=== PATIENT | male | born 1955 | race Caucasian/White ===

== ENCOUNTER 2019-05-18 12:09 | Emergency (ER) | payer OTHER ==
[~2019-05-18] VITALS: Ht 162.6 cm; Wt 69.0 kg
[2019-05-18 12:15] VITALS: BP 127/83
--- NOTE | 2019-05-18 12:37 | NUR ---
PT PLACED IN BED 7.
--- NOTE | 2019-05-18 13:15 | NUR ---
63 Y MALE, PRESENTED TO ED C/O ABDOMINAL DISTENTION WITH INTERMITTENT SOB. PT STATED "I HAVE BEEN HAVING THIS ISSUE FOR 6 MONTHS NOW" PT C/O CONSTIPATION WITH LBM 3 DAYS AGO. -N/V/D NO C/O PAIN AT THIS TIME. ABDOMEN ROUND FIRM TO TOUCH NON-TENDER, BOWEL SOUNDS PRESENT X4, ALSO NOTED BREEZY. FOOT SWELLING NON-PITTING. AAOX4, GCS 15, RR EVEN UNLABORED. ED MD DR. SALAS MADE AWARE, WILL CONTINUE TO MONITOR CLOSELY. BED LOCKED IN LOWEST POSITION, SIDERAIL UPX1.
--- NOTE | 2019-05-18 13:15 | NUR ---
RECEIVED REPORT FROM SAMPSON MARSH. PT IN BED RESTING, IN STABLE CONDITION AT THIS TIME. WILL CONTINUE TO MONITOR CLOSELY.
--- NOTE | 2019-05-18 13:15 | NUR ---
Trudi brar in ED - 05/18/19 at 1322 by LUCAS RECEIVED REPORT FROM RN. SALMA PT IN BED RESTING, IN STABLE CONDITION AT THIS TIME.
--- NOTE | 2019-05-18 13:15 | NUR ---
Note undone in EDM - 05/18/19 at 1431 by MEDAP 63 Y MALE, PRESENTED TO ED C/O ABDOMINAL DISTENTION WITH INTERMITTENT SOB. PT STATED "I HAVE BEEN HAVING THIS ISSUE FOR 6 MONTHS NOW" PT C/O CONSTIPATION WITH LBM 3 DAYS AGO. -N/V/D NO C/O PAIN AT THIS TIME. ABDOMEN ROUND HARD TO TOUCH NON-TENDER, BOWEL SOUNDS PRESENT X4, ALSO NOTED BREEZY. FOOT SWELLING NON-PITTING. AAOX4, GCS 15, RR EVEN UNLABORED. ED MD DR. SALAS MADE AWARE, WILL CONTINUE TO MONITOR CLOSELY. BED LOCKED IN LOWEST POSITION, SIDERAIL UPX1.
[2019-05-18 13:52] LABS: BASOPHILS % (AUTO) 0.4 % (0.0-2.0); EOSINOPHILS % (AUTO) 0.2 % (0.0-4.0); HEMATOCRIT 45.8 % (36-52); HEMOGLOBIN 15.4 g/dL (12.0-18.0); LYMPHOCYTES # (AUTO) 2.2 K/uL (2.0-11.5); LYMPHOCYTES % (AUTO) 20.4 % (20.5-51.1); MEAN CORPUSCULAR HEMOGLOBIN 30 pg (27-31); MEAN CORPUSCULAR HGB CONC 34 g/dL (33-37); MEAN CORPUSCULAR VOLUME 88.5 fL (80-94); MONOCYTES # (AUTO) 0.4 K/uL (0.8-1.0); MONOCYTES % (AUTO) 4.1 % (1.7-9.3); NEUTROPHILS % (AUTO) 74.9 % (42.2-75.2); PLATELET COUNT (AUTO) 141 K/uL (140-450); RED BLOOD CELL COUNT(AUTO) 5.17 MIL/uL (4.20-6.10); RED CELL DISTRIBUTION WIDTH 15.7 % (11.6-13.7); WHITE BLOOD COUNT (AUTO) 10.7 K/uL (4.8-10.8)
[2019-05-18 14:32] LABS: ALBUMIN 3.1 g/dL (3.4-5.0); ANION GAP 8.7 (8-16); CREATININE 0.9 mg/dL (0.7-1.3); TOTAL BILIRUBIN 0.7 mg/dL (0.0-1.0)
[2019-05-18 14:43] LABS: POTASSIUM 2.7 mmol/L (3.5-5.1)
[2019-05-18] MEDS ORDERED: POTASSIUM CHLORIDE 20% 40 MEQ/15 ML UDC PO ONE (15:05)
[2019-05-18] MEDS ORDERED: POTASSIUM CHLORIDE 10 MEQ TABER PO ONE (15:05)
--- NOTE | 2019-05-18 15:18 | NUR ---
ADMINISTERED MEDS ORDERED. PT RESTING COMFORTABLY IN HIS BED.
[2019-05-18 15:19] LABS: APPEARANCE,URINE CLEAR (CLEAR); COLOR,URINE YELLOW (YELLOW)
[2019-05-18 15:20] LABS: BILIRUBIN,URINE NEGATIVE (NEGATIVE); BLOOD, URINE NEGATIVE (NEGATIVE); NITRITE, URINE NEGATIVE (NEGATIVE); UGLUCOSE NEGATIVE (NEGATIVE)
--- NOTE | 2019-05-18 15:29 | NUR ---
PT COUGHNIG DUE TO LIQUID KCL PROVIDED TO THE PT. GAVE WATER AND APPLE JUICE TO REDUCE IRRITATION. WILL CONTINUE TO MONITOR PT.
[2019-05-18] MEDS ORDERED: ONDANSETRON 4 MG ODT PO ONE (15:40)
[2019-05-18] MEDS ORDERED: LIDOCAINE VISCOUS 2% 20 ML UDC PO ONE (15:40)
[2019-05-18 15:46] LABS: RBC,URINE 0-5 /HPF (0-5)
[2019-05-18 17:01] LABS: LEUKOCYTE ESTERASE ,URINE TRACE (NEGATIVE)
[2019-05-18 18:00] VITALS: BP 138/86
--- NOTE | 2019-05-18 18:00 | NUR ---
Patient discharged with v/s stable. Written and verbal after care instructions given and explained. Patient alert, oriented and verbalized understanding of instructions. Ambulatory with steady gait. All questions addressed prior to discharge. ID band removed. Patient advised to follow up with PMD. Rx of POTASSIUM CHLORIDE 20mEq and MIRALAX POWDER FOR SOLUTION 17GRM given. Patient educated on indication of medication including possible reaction and side effects. Opportunity to ask questions provided and answered.
== END 2019-05-18 18:00 | disposition home or self-care (01) ==
LOC: MED 12:09
DX: R14.0 Abdominal distension (gaseous) (principal); E87.6 Hypokalemia; J90 Pleural effusion, not elsewhere classified; I25.2 Old myocardial infarction; Z98.890 Other specified postprocedural states
CPT/HCPCS: 36415; 74176; 80053; 81001; 85025; 87086; 93005; 99284; Q0162

== ENCOUNTER 2019-05-24 10:27 | Inpatient (IN) | payer OTHER ==
[~2019-05-24] VITALS: Ht 170.2 cm; Wt 67.1 kg
--- NOTE | 2019-05-24 10:27 | NUR ---
Patient BIBA ACLS, transferred to bed 10. Dr. Bolden and RN evaluating patient at bedside.
[2019-05-24 10:30] VITALS: BP 148/83
--- NOTE | 2019-05-24 10:40 | NUR ---
BIB [facility] FROM HOME W/ C/O SOB STARTED THIS MORNING. [place] AT 23. BILATERAL WHEEZING IN LUNG EARLY. PATIENT ON 6 L MASK. 2 MN TX GIVEN BY [facility]. SOB STARTED ABOUT 5 MONTHS AGO WHEN HE HAD HERNIA REPAIR. AA0X4. BED IS DOWN, LOCKED, BED RAIL X 1, ERMD TO SEE PT. HX: COPD
--- NOTE | 2019-05-24 11:30 | NUR ---
DR ZHONG AT BEDSIDE
--- NOTE | 2019-05-24 11:34 | NUR ---
PT TAKEN DOWN TO 4 L NC
[2019-05-24] MEDS ORDERED: ALBUTEROL 0.083% 2.5 MG/3 ML NEBU INH ONE (11:45)
[2019-05-24] MEDS ORDERED: IPRATROPIUM 0.02% 0.5 MG/2.5 ML NEBU INH ONE (11:45)
[2019-05-24] MEDS ORDERED: ALBUTEROL SULFATE/IPRATROPIU 3 ML SOL IH ONE (11:45)
--- NOTE | 2019-05-24 11:54 | NUR ---
XRAY AT BEDSIDE
--- NOTE | 2019-05-24 12:05 | NUR ---
LABS DRAWN AND HANDED DIRECTLY TO ANALYTICAL SCIENTIST
--- NOTE | 2019-05-24 12:05 | NUR ---
RT AT BEDSIDE
[2019-05-24 12:23] LABS: HEMATOCRIT 44.5 % (36-52); HEMOGLOBIN 15.3 g/dL (12.0-18.0); MEAN CORPUSCULAR HEMOGLOBIN 30 pg (27-31); MEAN CORPUSCULAR HGB CONC 34 g/dL (33-37); MEAN CORPUSCULAR VOLUME 87.6 fL (80-94); PLATELET COUNT (AUTO) 126 K/uL (140-450); RED BLOOD CELL COUNT(AUTO) 5.08 MIL/uL (4.20-6.10); RED CELL DISTRIBUTION WIDTH 15.2 % (11.6-13.7); WHITE BLOOD COUNT (AUTO) 12.7 K/uL (4.8-10.8)
[2019-05-24 12:35] LABS: PROTHROMBIN TIME 10.8 secs (10.8-13.4)
[2019-05-24 12:41] LABS: ALBUMIN 3.1 g/dL (3.4-5.0); ANION GAP 8.9 (8-16); CARBON DIOXIDE 35.4 mmol/L (21-32); CREATININE 0.9 mg/dL (0.7-1.3); TOTAL BILIRUBIN 0.7 mg/dL (0.0-1.0)
[2019-05-24 12:42] LABS: LYMPHOCYTES % (MANUAL) 15 % (20-46); MONOCYTES % (MANUAL) 4 % (5-12)
[2019-05-24 12:43] LABS: POTASSIUM 2.3 mmol/L (3.5-5.1)
[2019-05-24] MEDS ORDERED: KCL 20 MEQ/WATER INJ PREMIX 200 ML IV ONE (12:45)
[2019-05-24] MEDS ORDERED: AZITHROMYCIN 250 MG TAB PO ONE (12:50)
[2019-05-24] MEDS ORDERED: cefTRIAXone 1,000 MG VIAL ONE (13:30)
--- NOTE | 2019-05-24 14:00 | NUR ---
Patient will be admitted to care of MARY SAMANIEGO. Admited to TELE. Will go to room 105A. Belongings list completed. Report to MICHAEL BRADEN.
[2019-05-24] MEDS ORDERED: ALBUTEROL 0.083% 2.5 MG/3 ML NEBU INH PRN (14:15)
[2019-05-24] MEDS ORDERED: POTASSIUM CHLORIDE 10 MEQ TABER PO SCH (14:15)
[2019-05-24] MEDS ORDERED: ACETAMINOPHEN 325 MG TAB PO PRN (14:15)
--- NOTE | 2019-05-24 14:20 | NUR ---
RECEIVED BEDSIDE REPORT FROM ER NURSE. PT AWAKE, ALERT AND ORIENTED X4. AZERI SPEAKING, ABLE TO SPEAK SOME TUNISIAN. ABLE TO FOLLOW COMMANDS. CC: SOB. PT ABLE TO MOVE HIM SELF FROM GURNEY TO THE NEW BED. NO RESPIRATORY DISTRESS NOTED ON 3L NC. LUNG SOUNDS CLEAR. BOWEL SOUNDS ACTIVE. LEFT FA 18G, INTACT AND PATENT, RUNNING K RIDER AT THIS TIME. SKIN INTACT. ON TELE MONITOR, ST WITH PVCS. VITALS STABLE AT THIS TIME, WILL RECORD. BED IN LOWEST POSITION AND BED ALARM ON. CALL LIGHT WITHIN REACH. WILL CONTINUE TO MONITOR.
[2019-05-24] MEDS ORDERED: ONDANSETRON 4 MG/2 ML VIAL IVP PRN (14:30)
[2019-05-24] MEDS ORDERED: HYDROcodone/APAP 5/325 MG 1 TAB TAB PO PRN (14:30)
[2019-05-24] MEDS ORDERED: MORPHINE SULFATE 4 MG/ML SYR IVP PRN (14:30)
[2019-05-24] MEDS ORDERED: MAG SULF 2000 MG/WATER PREMIX 50 ML IV PRN (14:30)
[2019-05-24 15:23] VITALS: BP 135/81
--- NOTE | 2019-05-24 15:30 | NUR ---
SPOKE WITH DR SAMANIEGO ON THE PHONE. MADE HIM AWARE, PT HAS TROP 0.538, LACTIC 2.3 AND PT C/O CHEST TIGHTNESS. DR SAMANIEGO ORDER ASPIRIN 325MG, AND BREATHING TX. DR SAMANIEGO ALREADY TEXTED HIDE M[employer] WORKER DR ROSSI WHO WILL BE COMING TODAY. DR SAMANIEGO SAID WILL GIVE LASIX AFTER K RIDER FINISHES.
[2019-05-24] MEDS ORDERED: ASPIRIN 325 MG TAB PO SCH (16:00)
[2019-05-24] MEDS: KCL 20 MEQ/WATER INJ PREMIX 200 ML IV SCH ×2 (16:03→18:03)
--- NOTE | 2019-05-24 17:10 | NUR ---
PT C/O ANXIETY, 1MG ATIVAN GIVEN ORDERED.
[2019-05-24] MEDS: LORazepam 2 MG/ML VIAL IVP PRN ×2 (17:12→20:59)
--- NOTE | 2019-05-24 18:00 | NUR ---
MRSA NARES COLLECTED. WILL SEND TO LAB.
[2019-05-24] MEDS: ALBUTEROL 0.083% 2.5 MG/3 ML NEBU INH SCH (19:00)
[2019-05-24] MEDS: IPRATROPIUM 0.02% 0.5 MG/2.5 ML NEBU INH SCH (19:00)
--- NOTE | 2019-05-24 19:15 | NUR ---
PT ACCIDENTALLY PULLED OUT IV. RESTARTED NEW IV 20 G ON LEFT FA. PT TOLERATED WELL.
--- NOTE | 2019-05-24 19:20 | NUR ---
RECEIVED PT ON BED, AAOX3, ABLE TO MAKE NEEDS KNOWN, VITAL SIGNS TAKEN, BP ELEVATED, PT RESTLESS AT THIS TIME, DENIES ANY PAIN, REINFORCE SAFETY PROTOCOLS, SIDE RAILS UP AND BED ALARM ON, K-RIDER INFUSING WELL AT THIS TIME, DAUGHTER IN LAW AT BEDSIDE, CALL LIGHT WITHIN REACH.
--- NOTE | 2019-05-24 19:47 | NUR ---
FAMILY IN THE ROOM, SHE ASK ME TO HOLD TX HHN , BECAUSE PT JUST FELT AT SLEEP. NO SOB OR DISTRESS NOTED
[2019-05-24 20:00] VITALS: BP 161/99
[2019-05-24] MEDS: methylPREDNISolone SS 40 MG/ML VIAL IVP SCH (20:26)
[2019-05-24] MEDS: POTASSIUM CHL 20 MEQ/NACL 0.9% 1,000 ML IV SCH (20:27)
[2019-05-24] MEDS ORDERED: FUROSEMIDE 40 MG/4 ML VIAL IVP SCH (20:30)
--- NOTE | 2019-05-24 20:50 | NUR ---
2ND TROPONIN RESULT RELAYED TO DR Cleo ROSSI, NO NEW ORDER, STATED NO NEED TO CALL AGAIN UNLESS THE THIRD TROPONIN GOES UP 1.0 POINT.
[2019-05-24] MEDS ORDERED: methylPREDNISolone SS 40 MG in WATER STERILE 1 ML IV SCH (21:00)
--- NOTE | 2019-05-24 21:00 | NUR ---
PT AAOX3 BUT RESTLESS, STATED THAT HE IS SO ANXIOUS AND CANNOT CONTROL HIMSELF, KEEPS ON TAKING HIS NASAL CANNULA AND TOSS AND TURNING ON THE BED, MEDICATED WITH ATIVAN PRN, SIDE RAILS UP AND BED ALARM ON, MONITORED CLOSELY.
--- NOTE | 2019-05-24 22:35 | NUR ---
BED ALARM TRIGGERED, SEEN UNSTEADILY STANDING ON SIDE OF THE BED, ASSISTED TO USE URINAL, VOIDED FREELY, ASSISTED BACK TO BED AND REINFORCE NOT TO TAKE OFF NASAL CANNULA, FREQUENT ROUNDS MADE.
[2019-05-25] VITALS: BP 140/71
[2019-05-25] MEDS: ALBUTEROL 0.083% 2.5 MG/3 ML NEBU INH SCH ×3 (01:33→12:57)
[2019-05-25] MEDS: IPRATROPIUM 0.02% 0.5 MG/2.5 ML NEBU INH SCH ×3 (01:34→12:58)
[2019-05-25 04:00] VITALS: BP 123/60
--- NOTE | 2019-05-25 04:00 | NUR ---
PT SLEEPING, NASAL CANNULA NOT IN PLACE, VITAL SIGNS STABLE, SAT-93% ON ROOM AIR, REINFORCE THE IMPORTANCE OF NASAL CANNULA, PT VERBALIZED UNDERSTANDING, IVF INFUSING WELL, MONITORED CLOSELY.
[2019-05-25] MEDS: POTASSIUM CHL 20 MEQ/NACL 0.9% 1,000 ML IV SCH (06:09)
[2019-05-25 07:09] LABS: EOSINOPHILS % (AUTO) 0.1 % (0.0-4.0); HEMATOCRIT 43.7 % (36-52); HEMOGLOBIN 14.6 g/dL (12.0-18.0); LYMPHOCYTES # (AUTO) 1.8 K/uL (2.0-11.5); LYMPHOCYTES % (AUTO) 14.4 % (20.5-51.1); MEAN CORPUSCULAR HEMOGLOBIN 29 pg (27-31); MEAN CORPUSCULAR HGB CONC 33 g/dL (33-37); MEAN CORPUSCULAR VOLUME 88.1 fL (80-94); MONOCYTES # (AUTO) 0.4 K/uL (0.8-1.0); MONOCYTES % (AUTO) 2.9 % (1.7-9.3); NEUTROPHILS # (AUTO) 10.1 K/uL (1.8-7.7); NEUTROPHILS % (AUTO) 82.6 % (42.2-75.2); PLATELET COUNT (AUTO) 121 K/uL (140-450); RED BLOOD CELL COUNT(AUTO) 4.97 MIL/uL (4.20-6.10); RED CELL DISTRIBUTION WIDTH 15.3 % (11.6-13.7); WHITE BLOOD COUNT (AUTO) 12.2 K/uL (4.8-10.8)
--- NOTE | 2019-05-25 07:33 | NUR ---
PT SLEEPING, NO SIGNS OF DISTRESS, REPORT GIVEN TO RN SONAM FOR CONTINUITY OF CARE.
--- NOTE | 2019-05-25 07:34 | NUR ---
RECEIVED BEDSIDE REPORT FROM APPEALS NURSE NURSE, PT IS AAOX4, ABLE TO FOLLOW COMMANDS AND MAKE NEEDS KNOWN,VSS, DENIES PAIN, NO S/S OF DISTRESS, DENIES SOB, RHONCHI LUNG SOUNDS BREEZY., ON O2 AT 3L VIA NC, DENIES CHEST PAIN, ST ON TELE MONITOR, PITTING EDEMA TO BLE NOTED, SOFT ABDOMEN WITH ACTIVE BOWEL SOUNDS, CONTINENT WITH B&B'S, SKIN IS WARM AND DRY TO TOUCH, ABLE TO MOVE ALL EXTREMITIES, IV TO LEFT FOREARM 18GA RUNNING NS + KCL 20 MEQ AT 100ML/HR. HOB ELEVATED 30 DEGREES, SAFETY MEASURES IN PLACE, CALL LIGHT WITHIN REACH, EXPLAINED PLAN OF CARE TO PT, PT VERBALIZED UNDERSTANDING, WILL CONTINUE TO MONITOR.
[2019-05-25 07:45] LABS: ALBUMIN 2.8 g/dL (3.4-5.0); ANION GAP 10.7 (8-16); CARBON DIOXIDE 36.1 mmol/L (21-32); CREATININE 0.8 mg/dL (0.7-1.3); MAGNESIUM 1.9 mg/dL (1.8-2.4); TOTAL BILIRUBIN 0.7 mg/dL (0.0-1.0)
[2019-05-25 07:57] LABS: POTASSIUM 2.8 mmol/L (3.5-5.1)
[2019-05-25 08:00] VITALS: BP 130/105
--- NOTE | 2019-05-25 08:12 | NUR ---
PATIENT HAS BEEN SCREENED AND CATEGORIZED MODERATE NUTRITION RISK. PATIENT WILL BE SEEN WITHIN 3-5 DAYS OF ADMISSION. 05/27/19[address]
[2019-05-25] MEDS ORDERED: ENOXAPARIN 40 MG/0.4 ML SYR SUBQ SCH (09:00)
[2019-05-25] MEDS ORDERED: POTASSIUM CHLORIDE 10 MEQ TABER PO SCH ×3 (09:00→17:00)
[2019-05-25] MEDS ORDERED: DOCUSATE SODIUM 100 MG GELCAP PO SCH (09:00)
[2019-05-25] MEDS ORDERED: METOPROLOL SUCCINATE 50 MG TABER PO SCH (09:00)
[2019-05-25] MEDS ORDERED: ASPIRIN 81 MG TAB.CHEW PO SCH (09:00)
--- NOTE | 2019-05-25 09:00 | NUR ---
SCHEDULED MEDICATION GIVEN, PT ABLE TO SWALLOW PILLS ONCE OF A TIME AND TOLERATED WELL. ATE 100% OF BREAKFAST, FAMILY MEMBERS AT BEDSIDE.
--- NOTE | 2019-05-25 09:15 | NUR ---
DR. ROSSI CAME IN TO SEE PT AT BEDSIDE, UPDATED PT'S CONDITION, WILL FOLLOW UP WITH NEW ORDERS.
[2019-05-25] MEDS: methylPREDNISolone SS 40 MG/ML VIAL IVP SCH (09:42)
[2019-05-25] MEDS ORDERED: KCL 20 MEQ/WATER INJ PREMIX 200 ML IV ONE (10:00)
--- NOTE | 2019-05-25 10:00 | NUR ---
DR. SAMANIEGO CAME IN TO SEE PT AT BEDSIDE, UPDATED PT'S CONDITION, WILL FOLLOW UP WITH NEW ORDERS.
--- NOTE | 2019-05-25 11:07 | NUR ---
CONTACTED PATIENT'S PCP MELISSA VILLA AT [phone], ABLE TO SPEAK TO AME. SHE PROVIDED ME WITH MAY 30, 2019 AT 1030 AM. COPY OF THE APPOINTMENT PROVIDED TO THE PATIENT'S SON KENIA NOEL AT THE BEDSIDE. INSTRUCTED HIM TO BRING ALL DISCHARGE PAPERWORKS TO THE APPOINTMENT. ABLE TO VERBALIZE UNDERSTANDING.
[2019-05-25] MEDS: LORazepam 2 MG/ML VIAL IVP PRN (11:32)
--- NOTE | 2019-05-25 11:32 | NUR ---
PT C/O ANXIETY, WANNA SMOKE OUTSIDE, EXPLAINED HOSPITAL POLICY TO PT, PT IS PACING IN THE ROOM EVEN FAMILY MEMBERS AT BEDSIDE, ORDERED NICOTINE PATCH, ATIVAN GIVEN ORDERED, WILL CONTINUE TO MONITOR.
[2019-05-25 12:00] VITALS: BP 158/83
[2019-05-25] MEDS ORDERED: NICOTINE TRANSD SYS 7 MG/24 HR PATCH TD SCH (12:00)
--- NOTE | 2019-05-25 12:00 | NUR ---
PT IS STILL FEELING ANXIETY AND DEPRESSED, EDUCATED ON RELAXATION METHODS, PT VERBALIZED UNDERSTANDING.
--- NOTE | 2019-05-25 13:04 | NUR ---
PT FOUND ON RA, SPO2 93%, DISCUSSED IMPORTANCE OF NC. PLACED PT BACK ON 2L NC AFTER TX.
--- NOTE | 2019-05-25 15:15 | NUR ---
PT PULLED OUT THE IV SITE TO LEFT FOREARM, STARTED NEW IV TO RIGHT HAND 20GA, EDUCATED PATIENT THE RISK OF REMOVE THE IV LINE, PT VERBALIZED UNDERSTANDING IT.
[2019-05-25 16:00] VITALS: BP 136/91
--- NOTE | 2019-05-25 16:00 | NUR ---
PT IS CONFUSED, PACING IN THE ROOM, REORIENTATED PATIENT BACK TO BED, VSS, DENIES PAIN, NO S/S OF DISTRESS AT THIS TIME.
--- NOTE | 2019-05-25 17:15 | NUR ---
PT WANTS TO GO AMA, AT BEDSIDE, EXPLAINED RISK AND BENEFIT OF AMA, PT STILL WANTS TO GO HOME, PAGED DR. SAMANIEGO, WAITING FOR CALL BACK.
--- NOTE | 2019-05-25 17:35 | NUR ---
PT SIGNED AMA FORM, FAMILY MEMBERS AT BEDSIDE, IV SITE REMOVED, ALL BELONGS COUNTED.
--- NOTE | 2019-05-25 17:55 | NUR ---
PT LEFT HOSPITAL WITH FAMILY MEMBERS, WHEELCHAIR ASSIST TO PRIVATE CAR, NO INCIDENT OCCUR.
[2019-05-26] MEDS ORDERED: NICOTINE TRANSD SYS 7 MG/24 HR PATCH TD SCH (09:00)
== END 2019-05-25 17:55 | disposition left against medical advice (07) | DRG 871 ==
LOC: MED 10:27 → MTU 13:15
PROVIDERS: ADMIT Internal Medicine Pulmonary Disease; ATTEND Internal Medicine Pulmonary Disease
DX: A41.9 Sepsis, unspecified organism (principal); J18.9 Pneumonia, unspecified organism; J96.00 Acute respiratory failure, unspecified whether with hypoxia or hypercapnia; J44.0 Chronic obstructive pulmonary disease with (acute) lower respiratory infection; I13.0 Hypertensive heart and chronic kidney disease with heart failure and stage 1 through stage 4 chronic kidney disease, or unspecified chronic kidney disease; E87.6 Hypokalemia; I27.20 Pulmonary hypertension, unspecified; I50.9 Heart failure, unspecified; I25.10 Atherosclerotic heart disease of native coronary artery without angina pectoris; I34.0 Nonrheumatic mitral (valve) insufficiency; F17.210 Nicotine dependence, cigarettes, uncomplicated; N18.9 Chronic kidney disease, unspecified; K75.89 Other specified inflammatory liver diseases; I35.0 Nonrheumatic aortic (valve) stenosis; E87.8 Other disorders of electrolyte and fluid balance, not elsewhere classified; Z53.21 Procedure and treatment not carried out due to patient leaving prior to being seen by health care provider; I25.2 Old myocardial infarction
CPT/HCPCS: 36415; 71045; 80053; 83605; 83735; 83880; 84484; 85025; 85610; 85730; 87040; 87081; 93005; 94640; 96365; 99285; J0696; J1650; J2060; J2920; J3475; J3480; J7030; J7060; J7613; J7644; Q0092

== ENCOUNTER 2019-05-29 16:42 | Inpatient (IN) | payer OTHER, MEDICAID ==
[~2019-05-29] VITALS: Ht 170.2 cm; Wt 72.6 kg
[2019-05-29 16:42] VITALS: BP 145/85
[2019-05-29] MEDS ORDERED: SODIUM CHLORIDE FLUSH 10 ML SYR IVF STA (16:53)
[2019-05-29] MEDS ORDERED: NITROGLYCERIN 0.4 MG TAB SL STA (16:53)
[2019-05-29] MEDS ORDERED: methylPREDNISolone SS 125 MG/2 ML VIAL IVP ONE (17:10)
[2019-05-29] MEDS ORDERED: ALBUTEROL SULFATE/IPRATROPIU 3 ML SOL IH ONE (17:10)
[2019-05-29 17:49] LABS: BASOPHILS % (AUTO) 0.2 % (0.0-2.0); HEMATOCRIT 43.2 % (36-52); HEMOGLOBIN 14.5 g/dL (12.0-18.0); LYMPHOCYTES # (AUTO) 2.3 K/uL (2.0-11.5); LYMPHOCYTES % (AUTO) 19.7 % (20.5-51.1); MEAN CORPUSCULAR HEMOGLOBIN 30 pg (27-31); MEAN CORPUSCULAR HGB CONC 34 g/dL (33-37); MONOCYTES # (AUTO) 0.5 K/uL (0.8-1.0); NEUTROPHILS # (AUTO) 8.8 K/uL (1.8-7.7); NEUTROPHILS % (AUTO) 76.1 % (42.2-75.2); PLATELET COUNT (AUTO) 107 K/uL (140-450); RED BLOOD CELL COUNT(AUTO) 4.91 MIL/uL (4.20-6.10); RED CELL DISTRIBUTION WIDTH 15.1 % (11.6-13.7); WHITE BLOOD COUNT (AUTO) 11.5 K/uL (4.8-10.8)
[2019-05-29] MEDS ORDERED: ASPIRIN 81 MG TAB.CHEW PO ONE (17:50)
[2019-05-29 18:23] LABS: ALBUMIN 3.3 g/dL (3.4-5.0); ANION GAP 6.9 (8-16); CREATININE 1.2 mg/dL (0.7-1.3); TOTAL BILIRUBIN 0.9 mg/dL (0.0-1.0)
[2019-05-29 18:27] LABS: POTASSIUM 1.9 mmol/L (3.5-5.1)
[2019-05-29] MEDS ORDERED: MAG SULF 2000 MG/WATER PREMIX 50 ML IV ONE (18:30)
[2019-05-29] MEDS ORDERED: POTASSIUM CHLORIDE 20% 40 MEQ/15 ML UDC PO ONE (18:30)
[2019-05-29] MEDS ORDERED: KCL 20 MEQ/WATER INJ PREMIX 200 ML IV ONE (18:30)
[2019-05-29] MEDS ORDERED: ACETAMINOPHEN 325 MG TAB PO PRN (18:45)
[2019-05-29] MEDS ORDERED: ONDANSETRON 4 MG/2 ML VIAL IM/IVP PRN (18:45)
[2019-05-29] MEDS ORDERED: DOCUSATE SODIUM 100 MG GELCAP PO PRN (18:45)
[2019-05-29] MEDS ORDERED: MORPHINE SULFATE 2 MG/ML SYR IVP PRN (18:45)
[2019-05-29] MEDS ORDERED: NITROGLYCERIN 0.4 MG TAB SL PRN (18:45)
[2019-05-29] MEDS ORDERED: HEPARIN PER PHARMACY MC PRN (18:50)
[2019-05-29] MEDS ORDERED: MEDICATION REC. PHARMACY CONS. 1 EA MISC MC PRN (18:50)
[2019-05-29] MEDS ORDERED: hePARIN / DEXT 5% PREMIX 250 ML IV SCH (18:50)
[2019-05-29] MEDS ORDERED: ALBUTEROL HFA MDI 90 MCG/ACTUATION 8 GM INH PRN (18:55)
[2019-05-29 19:38] LABS: PROTHROMBIN TIME 10.7 secs (10.8-13.4)
[2019-05-29 19:45] VITALS: BP 116/67
[2019-05-29] MEDS: methylPREDNISolone SS 40 MG/ML VIAL IVP SCH (19:45)
[2019-05-29 19:47] LABS: AMYLASE 89 U/L (25-115); CHOL/HDL RATIO 3.5 (1-4.5); HDL CHOLESTEROL 71 mg/dL (40-60); LDL (CALC) 134 mg/dL (60-100); LIPASE 214 U/L (73-393); PHOSPHORUS 3.8 mg/dL (2.5-4.9); THYROID STIMULATING HORMONE 0.52 uIU/mL (0.34-3.74); TRIGLYCERIDES 210 mg/dL (30-150)
[2019-05-29] MEDS: ALBUTEROL SULFATE/IPRATROPIU 3 ML SOL IH PRN (19:57)
[2019-05-29] MEDS ORDERED: ASPI-1718 PO (20:34)
[2019-05-29] MEDS ORDERED: LISI-420 PO (20:34)
[2019-05-29] MEDS ORDERED: ATOR40TA PO (20:34)
[2019-05-29] MEDS: FUROSEMIDE 40 MG/4 ML VIAL IVP SCH (20:49)
[2019-05-29] MEDS: SIMVASTATIN 40 MG TAB PO SCH (20:49)
[2019-05-29] MEDS: SULFAMETH/TRIMETH DS 800/160MG 1 TAB PO SCH (20:49)
[2019-05-29] MEDS: NACL 0.9% 1,000 ML IV SCH (20:51)
[2019-05-29] MEDS ORDERED: METOPROLOL 50 MG TAB PO SCH (21:00)
[2019-05-29] MEDS ORDERED: POTASSIUM CHLORIDE 40 MEQ, LIDOCAINE MPF 1% - 5 mL VIAL 25 MG in NACL 0.9% 250 ML IV SCH (21:30)
[2019-05-29] MEDS: hePARIN / DEXT 5% PREMIX 250 ML IV SCH (22:09)
[2019-05-29] MEDS ORDERED: LACTULOSE 20 GM/30 ML UDC PO SCH (22:15)
[2019-05-29] MEDS: ENALAPRIL 2.5 MG TAB PO SCH (23:52)
[2019-05-30] VITALS (18 sets, daily range): BP systolic 100–136; BP diastolic 63–91
[2019-05-30] MEDS: PIPERACILLIN/TAZOBACTAM 3.375 GM in DEXTROSE 5% 50 ML IV SCH ×5 (00:04→23:33)
[2019-05-30] MEDS: methylPREDNISolone SS 40 MG/ML VIAL IVP SCH ×5 (00:04→23:32)
[2019-05-30] MEDS ORDERED: PIPERACILLIN/TAZOBACTAM 3.375 GM VIAL IV ONE ×2 (00:12→05:11)
[2019-05-30] MEDS: NACL 0.9% 1,000 ML IV SCH (04:03)
[2019-05-30] MEDS: hePARIN / DEXT 5% PREMIX 250 ML IV SCH (05:13)
[2019-05-30] MEDS: BUDESONIDE 0.5 MG/2 ML NEBU INH SCH ×2 (07:07→19:54)
[2019-05-30 07:20] LABS: ANION GAP 9.3 (8-16)
[2019-05-30 07:23] LABS: CARBON DIOXIDE 43.7 mmol/L (21-32)
[2019-05-30 07:32] LABS: MAGNESIUM 2.4 mg/dL (1.8-2.4); PHOSPHORUS 4.8 mg/dL (2.5-4.9)
[2019-05-30] MEDS: POTASSIUM CHLORIDE 10 MEQ TABER PO SCH ×2 (08:00→08:28)
[2019-05-30] MEDS: ASPIRIN 81 MG TAB.CHEW PO SCH (09:00)
[2019-05-30] MEDS: LACTULOSE 20 GM/30 ML UDC PO SCH ×2 (09:00→20:13)
[2019-05-30] MEDS ORDERED: POTASSIUM CHLORIDE 40 MEQ, LIDOCAINE MPF 1% - 5 mL VIAL 25 MG in NACL 0.9% 250 ML IV SCH ×3 (09:00→18:00)
[2019-05-30] MEDS: SULFAMETH/TRIMETH DS 800/160MG 1 TAB PO SCH (09:00)
[2019-05-30] MEDS: ENALAPRIL 2.5 MG TAB PO SCH ×2 (09:00→20:13)
[2019-05-30] MEDS: METOPROLOL 25 MG TAB PO SCH ×2 (09:00→20:14)
[2019-05-30 09:18] LABS: BASOPHILS # (AUTO) 0.1 K/uL (0.00-0.22); BASOPHILS % (AUTO) 0.9 % (0.0-2.0); HEMATOCRIT 43.6 % (36-52); HEMOGLOBIN 14.5 g/dL (12.0-18.0); LYMPHOCYTES # (AUTO) 1.3 K/uL (2.0-11.5); LYMPHOCYTES % (AUTO) 15.4 % (20.5-51.1); MEAN CORPUSCULAR HEMOGLOBIN 30 pg (27-31); MEAN CORPUSCULAR HGB CONC 33 g/dL (33-37); MEAN CORPUSCULAR VOLUME 89.4 fL (80-94); MONOCYTES # (AUTO) 0.2 K/uL (0.8-1.0); MONOCYTES % (AUTO) 2.6 % (1.7-9.3); NEUTROPHILS # (AUTO) 7.1 K/uL (1.8-7.7); NEUTROPHILS % (AUTO) 81.1 % (42.2-75.2); PLATELET COUNT (AUTO) 107 K/uL (140-450); RED BLOOD CELL COUNT(AUTO) 4.88 MIL/uL (4.20-6.10); RED CELL DISTRIBUTION WIDTH 15.6 % (11.6-13.7); WHITE BLOOD COUNT (AUTO) 8.7 K/uL (4.8-10.8)
[2019-05-30] MEDS: FUROSEMIDE 40 MG/4 ML VIAL IVP SCH ×2 (09:20→16:50)
[2019-05-30] MEDS: NICOTINE TRANSD SYS 21 MG/24 HR PATCH TD SCH (09:31)
[2019-05-30] MEDS ORDERED: DEXT 5% /NACL 0.9% 1,000 ML IV SCH (11:15)
[2019-05-30 12:26] LABS: CREATININE 1.1 mg/dL (0.7-1.3)
[2019-05-30 12:54] LABS: CARBON DIOXIDE 42.6 mmol/L (21-32); POTASSIUM 2.6 mmol/L (3.5-5.1)
[2019-05-30] MEDS: POTASSIUM CHL 40 MEQ/ D5-1/2NS 1,000 ML IV SCH (13:26)
[2019-05-30] MEDS ORDERED: POTASSIUM CHLORIDE 10 MEQ TABER PO SCH (14:00)
[2019-05-30] MEDS ORDERED: AZITHROMYCIN 500 MG in DEXTROSE 5% 250 ML IV SCH (15:00)
[2019-05-30] MEDS: ALBUTEROL SULFATE/IPRATROPIU 3 ML SOL IH SCH ×3 (15:31→22:54)
[2019-05-30] MEDS: SIMVASTATIN 40 MG TAB PO SCH (20:13)
[2019-05-30 22:39] LABS: ANION GAP 7.4 (8-16); CARBON DIOXIDE 39.9 mmol/L (21-32); CREATININE 1.1 mg/dL (0.7-1.3); POTASSIUM 3.3 mmol/L (3.5-5.1)
[2019-05-30 22:47] LABS: APPEARANCE,URINE CLEAR (CLEAR); BILIRUBIN,URINE NEGATIVE (NEGATIVE); BLOOD, URINE 3+ (NEGATIVE); COLOR,URINE YELLOW (YELLOW); LEUKOCYTE ESTERASE ,URINE TRACE (NEGATIVE); NITRITE, URINE NEGATIVE (NEGATIVE); UGLUCOSE NEGATIVE (NEGATIVE)
[2019-05-30] MEDS: HYDROcodone/APAP 7.5/325 MG 1 TAB PO PRN (23:32)
[2019-05-30 23:33] LABS: BARBITURATE, URINE NEG. ng/ml (NEG <=200); BENZODIAZEPINE, URINE NEG. ng/mL (NEG <=200); CANNABINOID, URINE POS. ng/mL (NEG <=50); COCAINE, URINE NEG. ng/mL (NEG <=300); OPIATE, URINE NEG. ng/mL (NEG <=2000); PHENCYCLIDINE SCREEN,URINE NEG. ng/mL (NEG <=25)
[2019-05-31] VITALS (26 sets, daily range): BP systolic 87–140; BP diastolic 31–83
[2019-05-31] MEDS ORDERED: POTASSIUM CHLORIDE 10 MEQ TABER PO SCH (00:30)
[2019-05-31 00:51] LABS: WBC,URINE 0 /HPF (0-5)
[2019-05-31] MEDS: ALBUTEROL SULFATE/IPRATROPIU 3 ML SOL IH SCH ×6 (02:53→23:00)
[2019-05-31] MEDS: methylPREDNISolone SS 40 MG/ML VIAL IVP SCH ×3 (05:22→17:52)
[2019-05-31] MEDS: PIPERACILLIN/TAZOBACTAM 3.375 GM in DEXTROSE 5% 50 ML IV SCH ×3 (05:23→17:52)
[2019-05-31] MEDS: BUDESONIDE 0.5 MG/2 ML NEBU INH SCH ×2 (07:44→19:19)
[2019-05-31 08:09] LABS: T4 (THYROXINE) 6.3 ug/dL (4.5-12.0)
[2019-05-31 08:14] LABS: HEMATOCRIT 38.9 % (36-52); HEMOGLOBIN 13.1 g/dL (12.0-18.0); MEAN CORPUSCULAR HEMOGLOBIN 30 pg (27-31); MEAN CORPUSCULAR HGB CONC 34 g/dL (33-37); PLATELET COUNT (AUTO) 94 K/uL (140-450); RED BLOOD CELL COUNT(AUTO) 4.37 MIL/uL (4.20-6.10); RED CELL DISTRIBUTION WIDTH 15.6 % (11.6-13.7); WHITE BLOOD COUNT (AUTO) 9.9 K/uL (4.8-10.8)
[2019-05-31] MEDS: ENALAPRIL 2.5 MG TAB PO SCH ×2 (08:15→20:01)
[2019-05-31] MEDS: METOPROLOL 25 MG TAB PO SCH ×2 (08:15→20:00)
[2019-05-31] MEDS: NICOTINE TRANSD SYS 21 MG/24 HR PATCH TD SCH (08:16)
[2019-05-31] MEDS: AZITHROMYCIN 250 MG in DEXTROSE 5% 250 ML IV SCH (08:16)
[2019-05-31] MEDS: LACTULOSE 20 GM/30 ML UDC PO SCH ×2 (08:16→20:00)
[2019-05-31 09:24] LABS: LYMPHOCYTES % (MANUAL) 14 % (20-46)
[2019-05-31 09:25] LABS: MONOCYTES % (MANUAL) 8 % (5-12)
[2019-05-31] MEDS ORDERED: POTASSIUM CHLORIDE 40 MEQ, LIDOCAINE MPF 1% - 5 mL VIAL 25 MG in NACL 0.9% 250 ML IV SCH (10:30)
[2019-05-31 10:48] LABS: ANION GAP 8.2 (8-16); CREATININE 1.1 mg/dL (0.7-1.3)
[2019-05-31 10:58] LABS: POTASSIUM 2.9 mmol/L (3.5-5.1)
[2019-05-31 10:59] LABS: CARBON DIOXIDE 40.7 mmol/L (21-32)
[2019-05-31] MEDS ORDERED: NACL 0.45% 1,000 ML IV SCH (11:05)
[2019-05-31] MEDS: LORazepam 0.5 MG TAB PO PRN ×2 (11:55→19:59)
[2019-05-31] MEDS: FUROSEMIDE 40 MG/4 ML VIAL IVP SCH (12:31)
[2019-05-31] MEDS: POTASSIUM CHL 40 MEQ/ D5-1/2NS 1,000 ML IV SCH (13:05)
[2019-05-31 14:18] LABS: ANION GAP 6.5 (8-16); CARBON DIOXIDE 39.7 mmol/L (21-32); POTASSIUM 3.2 mmol/L (3.5-5.1)
[2019-05-31] MEDS: ASPIRIN 81 MG TAB.CHEW PO SCH (16:36)
[2019-05-31] MEDS: POTASSIUM CHLORIDE 10 MEQ TABER PO SCH ×3 (16:37→19:02)
[2019-05-31 19:13] LABS: SPECIMENTYPE,BODY FLUID THORACENTESIS
[2019-05-31 19:14] LABS: APPEARANCE,SPUN,BODY FLUID CLEAR (CLEAR); APPEARANCE,UNSPUN,BODY FLUID CLEAR (CLEAR); COLOR,BODY FLUID YELLOW (LT YELLOW); TOTAL VOLUME,BODY FLUID 500 mL
[2019-05-31] MEDS: HYDROcodone/APAP 7.5/325 MG 1 TAB PO PRN (20:00)
[2019-05-31] MEDS: SIMVASTATIN 40 MG TAB PO SCH (20:00)
[2019-05-31 20:02] LABS: GLUCOSE,BODY FLUID 113 mg/dL
[2019-05-31 20:08] LABS: RBC, BODY FLUID 293 /cu. mm.; WBC, BODY FLUID 440 /cu. mm.
[2019-05-31] MEDS ORDERED: POTASSIUM CHLORIDE 10 MEQ TABER PO ONE ×2 (20:35→21:16)
[2019-05-31] MEDS ORDERED: AMIODARONE 150 MG in DEXTROSE 5% 100 ML IV SCH (21:45)
[2019-05-31] MEDS ORDERED: LORazepam 1 MG TAB PO PRN (21:55)
[2019-05-31] MEDS ORDERED: AMIODARONE 150 MG/3 ML VIAL IV ONE (22:05)
[2019-05-31] MEDS: AMIODARONE 450 MG in DEXTROSE 5% 250 ML IV SCH (22:10)
[2019-05-31] MEDS ORDERED: AMIODARONE 450 MG/9 ML VIAL IV ONE (22:13)
[2019-05-31 22:32] LABS: MAGNESIUM 2.1 mg/dL (1.8-2.4)
[2019-05-31] MEDS: LORazepam 2 MG/ML VIAL IVP PRN (23:52)
[2019-05-31] MEDS ORDERED: LORazepam 2 MG/ML VIAL ONE (23:58)
[2019-06-01] VITALS (90 sets, daily range): BP systolic 76–137; BP diastolic 32–91
[2019-06-01] MEDS: methylPREDNISolone SS 40 MG/ML VIAL IVP SCH ×4 (00:06→18:55)
[2019-06-01] MEDS: PIPERACILLIN/TAZOBACTAM 3.375 GM in DEXTROSE 5% 50 ML IV SCH ×4 (00:06→18:52)
[2019-06-01] MEDS: ALBUTEROL SULFATE/IPRATROPIU 3 ML SOL IH SCH ×4 (03:44→19:37)
[2019-06-01] MEDS: AMIODARONE 450 MG in DEXTROSE 5% 250 ML IV SCH ×2 (04:11→09:09)
[2019-06-01] MEDS ORDERED: POTASSIUM CHLORIDE 40 MEQ, LIDOCAINE MPF 1% - 5 mL VIAL 25 MG in NACL 0.9% 250 ML IV ONE (04:15)
[2019-06-01] MEDS: ALBUTEROL SULFATE/IPRATROPIU 3 ML SOL IH PRN (05:27)
[2019-06-01] MEDS ORDERED: KCL 20 MEQ/WATER INJ PREMIX 200 ML IV SCH (06:05)
[2019-06-01] MEDS ORDERED: NACL 0.9% 500 ML IV ONE (06:20)
[2019-06-01] MEDS: LORazepam 2 MG/ML VIAL IVP PRN (06:33)
[2019-06-01 07:05] LABS: ANION GAP 9.1 (8-16); CARBON DIOXIDE 38.5 mmol/L (21-32); POTASSIUM 3.6 mmol/L (3.5-5.1)
[2019-06-01] MEDS: BUDESONIDE 0.5 MG/2 ML NEBU INH SCH ×2 (07:26→19:37)
[2019-06-01] MEDS ORDERED: ETOMIDATE 20 MG/10 ML VIAL IVP ONE (08:43)
[2019-06-01] MEDS ORDERED: ROCURONIUM 50 MG/5 ML VIAL IV ONE (08:43)
[2019-06-01] MEDS ORDERED: FUROSEMIDE 40 MG/4 ML VIAL IVP SCH ×2 (09:00→21:00)
[2019-06-01] MEDS: METOPROLOL 25 MG TAB PO SCH ×2 (09:00→21:00)
[2019-06-01] MEDS: ENALAPRIL 2.5 MG TAB PO SCH ×2 (09:00→21:00)
[2019-06-01] MEDS: PROPOFOL 1000 MG/100 ML PREMIX 100 ML IV PRN ×2 (10:01→18:55)
[2019-06-01] MEDS: NICOTINE TRANSD SYS 21 MG/24 HR PATCH TD SCH (10:03)
[2019-06-01] MEDS: ASPIRIN 81 MG TAB.CHEW PO SCH (10:03)
[2019-06-01] MEDS: AZITHROMYCIN 250 MG in DEXTROSE 5% 250 ML IV SCH (10:04)
[2019-06-01] MEDS ORDERED: LORazepam 2 MG/ML VIAL IM/IVP SCH (11:00)
[2019-06-01] MEDS: POTASSIUM CHL 40 MEQ/ D5-1/2NS 1,000 ML IV SCH (13:05)
[2019-06-01] MEDS ORDERED: PANTOPRAZOLE 40 MG INJ VIAL IVP SCH (15:30)
[2019-06-01] MEDS ORDERED: NACL 0.9% 1,000 ML IV SCH (18:55)
[2019-06-01] MEDS: fentaNYL 1 MG in NACL 0.9% 80 ML IV PRN (20:14)
[2019-06-01] MEDS: MIDAZOLAM MDV 50 MG in NACL 0.9% 40 ML IV PRN (20:25)
[2019-06-01] MEDS ORDERED: NOREPINEPHRINE 8 MG in DEXTROSE 5% 250 ML IV PRN (20:35)
[2019-06-01] MEDS ORDERED: NOREPINEPHRINE 4 MG/4 ML VIAL IV ONE (20:46)
[2019-06-01 20:47] LABS: BASOPHILS % (AUTO) 0.2 % (0.0-2.0); HEMOGLOBIN 9.7 g/dL (12.0-18.0); LYMPHOCYTES # (AUTO) 1.4 K/uL (2.0-11.5); MEAN CORPUSCULAR HEMOGLOBIN 30 pg (27-31); MEAN CORPUSCULAR HGB CONC 33 g/dL (33-37); MEAN CORPUSCULAR VOLUME 88.8 fL (80-94); MONOCYTES # (AUTO) 0.2 K/uL (0.8-1.0); MONOCYTES % (AUTO) 3.1 % (1.7-9.3); NEUTROPHILS # (AUTO) 5.8 K/uL (1.8-7.7); NEUTROPHILS % (AUTO) 77.7 % (42.2-75.2); PLATELET COUNT (AUTO) 81 K/uL (140-450); RED BLOOD CELL COUNT(AUTO) 3.27 MIL/uL (4.20-6.10); RED CELL DISTRIBUTION WIDTH 15.1 % (11.6-13.7)
[2019-06-01] MEDS ORDERED: FUROSEMIDE 20 MG/2 ML VIAL IVP SCH (21:00)
[2019-06-01 21:40] LABS: WHITE BLOOD COUNT (AUTO) 9.3 K/uL (4.8-10.8)
[2019-06-01] MEDS: SIMVASTATIN 40 MG TAB PO SCH (21:44)
[2019-06-02] VITALS (96 sets, daily range): BP systolic 97–134; BP diastolic 28–108
[2019-06-02] MEDS: PIPERACILLIN/TAZOBACTAM 3.375 GM in DEXTROSE 5% 50 ML IV SCH ×5 (00:55→23:26)
[2019-06-02] MEDS: ALBUTEROL SULFATE/IPRATROPIU 3 ML SOL IH SCH ×4 (01:17→19:25)
[2019-06-02] MEDS: methylPREDNISolone SS 40 MG/ML VIAL IVP SCH ×5 (01:41→23:27)
[2019-06-02 06:07] LABS: HEPATITIS A ANTIBODY IGM Negative (Negative); HEPATITIS B CORE AB TOTAL Negative (Negative); HEPATITIS B SURFACE ANTIBODY Non Reactive (.); HEPATITIS B SURFACE ANTIGEN Negative (Negative)
[2019-06-02 06:47] LABS: BASOPHILS % (AUTO) 0.1 % (0.0-2.0); HEMATOCRIT 30.6 % (36-52); HEMOGLOBIN 10.3 g/dL (12.0-18.0); LYMPHOCYTES # (AUTO) 1.8 K/uL (2.0-11.5); LYMPHOCYTES % (AUTO) 15.8 % (20.5-51.1); MEAN CORPUSCULAR HEMOGLOBIN 30 pg (27-31); MEAN CORPUSCULAR HGB CONC 34 g/dL (33-37); MEAN CORPUSCULAR VOLUME 88.5 fL (80-94); MONOCYTES # (AUTO) 0.3 K/uL (0.8-1.0); MONOCYTES % (AUTO) 2.5 % (1.7-9.3); NEUTROPHILS # (AUTO) 9.1 K/uL (1.8-7.7); NEUTROPHILS % (AUTO) 81.6 % (42.2-75.2); PLATELET COUNT (AUTO) 85 K/uL (140-450); RED BLOOD CELL COUNT(AUTO) 3.46 MIL/uL (4.20-6.10); RED CELL DISTRIBUTION WIDTH 15.1 % (11.6-13.7); WHITE BLOOD COUNT (AUTO) 11.1 K/uL (4.8-10.8)
[2019-06-02] MEDS: BUDESONIDE 0.5 MG/2 ML NEBU INH SCH ×2 (06:51→19:25)
[2019-06-02 07:26] LABS: ANION GAP 6.2 (8-16); CARBON DIOXIDE 37.4 mmol/L (21-32); CREATININE 1.1 mg/dL (0.7-1.3); POTASSIUM 3.6 mmol/L (3.5-5.1)
[2019-06-02 07:31] LABS: MAGNESIUM 2.1 mg/dL (1.8-2.4); PHOSPHORUS 3.2 mg/dL (2.5-4.9)
[2019-06-02] MEDS ORDERED: NACL 0.9% 1,000 ML IV SCH (08:30)
[2019-06-02] MEDS: AZITHROMYCIN 250 MG in DEXTROSE 5% 250 ML IV SCH (08:39)
[2019-06-02] MEDS: NICOTINE TRANSD SYS 21 MG/24 HR PATCH TD SCH (08:39)
[2019-06-02] MEDS: NACL 0.9% 1,000 ML IV SCH ×2 (08:41→20:26)
[2019-06-02] MEDS: MIDAZOLAM MDV 50 MG in NACL 0.9% 40 ML IV PRN ×2 (08:58→23:30)
[2019-06-02] MEDS ORDERED: PANTOPRAZOLE 40 MG INJ VIAL IVP SCH (09:00)
[2019-06-02] MEDS ORDERED: CARVEDILOL 6.25 MG TAB PO SCH (11:07)
[2019-06-02] MEDS: PANTOPRAZOLE 40 MG INJ VIAL IVP SCH (20:26)
[2019-06-02] MEDS: LACTULOSE 20 GM/30 ML UDC PO SCH (20:26)
[2019-06-02] MEDS: CARVEDILOL 6.25 MG TAB PO SCH (20:27)
[2019-06-02] MEDS: SIMVASTATIN 40 MG TAB PO SCH (20:28)
[2019-06-02] MEDS: fentaNYL 1 MG in NACL 0.9% 80 ML IV PRN (20:55)
[2019-06-03] VITALS (107 sets, daily range): BP systolic 90–143; BP diastolic 44–83
[2019-06-03] MEDS: ALBUTEROL SULFATE/IPRATROPIU 3 ML SOL IH SCH ×4 (01:45→19:47)
[2019-06-03] MEDS: NACL 0.9% 1,000 ML IV SCH (04:10)
[2019-06-03] MEDS: methylPREDNISolone SS 40 MG/ML VIAL IVP SCH ×3 (05:58→17:46)
[2019-06-03] MEDS: PIPERACILLIN/TAZOBACTAM 3.375 GM in DEXTROSE 5% 50 ML IV SCH ×3 (05:58→17:45)
[2019-06-03 06:10] LABS: BASOPHILS % (AUTO) 0.1 % (0.0-2.0); HEMATOCRIT 27.9 % (36-52); HEMOGLOBIN 9.3 g/dL (12.0-18.0); LYMPHOCYTES # (AUTO) 1.7 K/uL (2.0-11.5); MEAN CORPUSCULAR HEMOGLOBIN 30 pg (27-31); MEAN CORPUSCULAR HGB CONC 33 g/dL (33-37); MEAN CORPUSCULAR VOLUME 89.4 fL (80-94); MONOCYTES # (AUTO) 0.3 K/uL (0.8-1.0); MONOCYTES % (AUTO) 2.7 % (1.7-9.3); NEUTROPHILS % (AUTO) 83.2 % (42.2-75.2); PLATELET COUNT (AUTO) 82 K/uL (140-450); RED BLOOD CELL COUNT(AUTO) 3.12 MIL/uL (4.20-6.10); RED CELL DISTRIBUTION WIDTH 15.3 % (11.6-13.7); WHITE BLOOD COUNT (AUTO) 12.1 K/uL (4.8-10.8)
[2019-06-03 06:22] LABS: ALBUMIN 1.9 g/dL (3.4-5.0); ANION GAP 6.6 (8-16); CARBON DIOXIDE 31.9 mmol/L (21-32); CREATININE 0.9 mg/dL (0.7-1.3); PHOSPHORUS 3.9 mg/dL (2.5-4.9); POTASSIUM 3.5 mmol/L (3.5-5.1); TOTAL BILIRUBIN 0.6 mg/dL (0.0-1.0)
[2019-06-03] MEDS: BUDESONIDE 0.5 MG/2 ML NEBU INH SCH ×2 (07:01→19:47)
[2019-06-03] MEDS ORDERED: ETOMIDATE 20 MG/10 ML VIAL IVP ONE (08:05)
[2019-06-03] MEDS ORDERED: SUCCINYLCHOLINE CHLORIDE 200 MG/10 ML VIAL IVP ONE (08:05)
[2019-06-03] MEDS: LACTULOSE 20 GM/30 ML UDC PO SCH (09:00)
[2019-06-03] MEDS: MIDAZOLAM MDV 50 MG in NACL 0.9% 40 ML IV PRN ×2 (09:27→17:48)
[2019-06-03] MEDS: PANTOPRAZOLE 40 MG INJ VIAL IVP SCH ×2 (09:41→20:35)
[2019-06-03] MEDS: CARVEDILOL 6.25 MG TAB PO SCH ×2 (09:41→20:36)
[2019-06-03] MEDS: POTASSIUM CHLORIDE 20% 40 MEQ/15 ML UDC GT SCH ×2 (09:41→12:22)
[2019-06-03] MEDS: NICOTINE TRANSD SYS 21 MG/24 HR PATCH TD SCH (09:42)
[2019-06-03] MEDS: AZITHROMYCIN 250 MG in DEXTROSE 5% 250 ML IV SCH (09:42)
[2019-06-03] MEDS: SIMVASTATIN 40 MG TAB PO SCH (20:36)
[2019-06-04] VITALS (66 sets, daily range): BP systolic 82–179; BP diastolic 38–105
[2019-06-04] MEDS: PIPERACILLIN/TAZOBACTAM 3.375 GM in DEXTROSE 5% 50 ML IV SCH ×4 (00:17→17:18)
[2019-06-04] MEDS: methylPREDNISolone SS 40 MG/ML VIAL IVP SCH ×4 (00:17→17:18)
[2019-06-04] MEDS: MIDAZOLAM MDV 50 MG in NACL 0.9% 40 ML IV PRN ×2 (00:21→08:42)
[2019-06-04] MEDS: ALBUTEROL SULFATE/IPRATROPIU 3 ML SOL IH SCH ×4 (01:35→19:34)
[2019-06-04] MEDS: fentaNYL 1 MG in NACL 0.9% 80 ML IV PRN (04:22)
[2019-06-04 06:17] LABS: BASOPHILS % (AUTO) 0.1 % (0.0-2.0); EOSINOPHILS % (AUTO) 0.1 % (0.0-4.0); HEMATOCRIT 29.4 % (36-52); HEMOGLOBIN 9.9 g/dL (12.0-18.0); LYMPHOCYTES # (AUTO) 1.7 K/uL (2.0-11.5); MEAN CORPUSCULAR HEMOGLOBIN 30 pg (27-31); MEAN CORPUSCULAR HGB CONC 34 g/dL (33-37); MEAN CORPUSCULAR VOLUME 89.8 fL (80-94); MONOCYTES # (AUTO) 0.4 K/uL (0.8-1.0); MONOCYTES % (AUTO) 3.2 % (1.7-9.3); NEUTROPHILS % (AUTO) 82.6 % (42.2-75.2); PLATELET COUNT (AUTO) 87 K/uL (140-450); RED BLOOD CELL COUNT(AUTO) 3.27 MIL/uL (4.20-6.10); RED CELL DISTRIBUTION WIDTH 15.4 % (11.6-13.7)
[2019-06-04 06:36] LABS: ANION GAP 9.8 (8-16); CARBON DIOXIDE 31.4 mmol/L (21-32); CREATININE 0.9 mg/dL (0.7-1.3); POTASSIUM 3.2 mmol/L (3.5-5.1)
[2019-06-04 06:41] LABS: WHITE BLOOD COUNT (AUTO) 12.1 K/uL (4.8-10.8)
[2019-06-04] MEDS: BUDESONIDE 0.5 MG/2 ML NEBU INH SCH ×2 (07:00→19:35)
[2019-06-04] MEDS ORDERED: POTASSIUM CHLORIDE 20% 40 MEQ/15 ML UDC GT SCH (07:30)
[2019-06-04] MEDS: NACL 0.45% 1,000 ML IV SCH (07:39)
[2019-06-04] MEDS: PANTOPRAZOLE 40 MG INJ VIAL IVP SCH ×2 (08:03→20:59)
[2019-06-04] MEDS: LACTULOSE 20 GM/30 ML UDC PO SCH (08:03)
[2019-06-04] MEDS: CARVEDILOL 6.25 MG TAB PO SCH ×2 (08:03→20:59)
[2019-06-04] MEDS: NICOTINE TRANSD SYS 21 MG/24 HR PATCH TD SCH (08:04)
[2019-06-04] MEDS ORDERED: HYDRAGUARD CREAM TP SCH (09:45)
[2019-06-04] MEDS ORDERED: MIDAZOLAM 2 MG/2 ML VIAL IV PRN (10:45)
[2019-06-04] MEDS ORDERED: MORPHINE SULFATE 2 MG/ML SYR IVP PRN (10:45)
[2019-06-04] MEDS: MIDAZOLAM 2 MG/2 ML VIAL IV PRN ×3 (14:57→19:48)
[2019-06-04] MEDS: MORPHINE SULFATE 2 MG/ML SYR IVP PRN ×3 (14:58→21:28)
[2019-06-04 18:54] LABS: ANION GAP 9.3 (8-16); CARBON DIOXIDE 32.4 mmol/L (21-32); CREATININE 0.9 mg/dL (0.7-1.3); POTASSIUM 3.7 mmol/L (3.5-5.1)
[2019-06-04] MEDS: SIMVASTATIN 40 MG TAB PO SCH (21:00)
[2019-06-04] MEDS ORDERED: PROPOFOL 1000 MG/100 ML PREMIX 100 ML IV PRN (22:05)
[2019-06-04] MEDS ORDERED: PROPOFOL 1000 MG/100 ML PREMIX 100 ML IV ONE (22:13)
[2019-06-04] MEDS ORDERED: ROCURONIUM 50 MG/5 ML VIAL IV SCH (22:25)
[2019-06-04] MEDS ORDERED: ETOMIDATE 20 MG/10 ML VIAL IVP SCH (22:25)
[2019-06-05] VITALS (107 sets, daily range): BP systolic 81–162; BP diastolic 44–95
[2019-06-05] MEDS: methylPREDNISolone SS 40 MG/ML VIAL IVP SCH ×5 (00:12→23:26)
[2019-06-05] MEDS: PIPERACILLIN/TAZOBACTAM 3.375 GM in DEXTROSE 5% 50 ML IV SCH ×5 (00:13→23:26)
[2019-06-05] MEDS: ALBUTEROL SULFATE/IPRATROPIU 3 ML SOL IH SCH ×4 (02:17→20:14)
[2019-06-05 04:48] LABS: HEMATOCRIT 30.2 % (36-52); HEMOGLOBIN 10.1 g/dL (12.0-18.0); MEAN CORPUSCULAR HEMOGLOBIN 30 pg (27-31); MEAN CORPUSCULAR HGB CONC 34 g/dL (33-37); MEAN CORPUSCULAR VOLUME 89.4 fL (80-94); PLATELET COUNT (AUTO) 89 K/uL (140-450); RED BLOOD CELL COUNT(AUTO) 3.38 MIL/uL (4.20-6.10); RED CELL DISTRIBUTION WIDTH 15.7 % (11.6-13.7)
[2019-06-05] MEDS: BUDESONIDE 0.5 MG/2 ML NEBU INH SCH ×2 (07:00→20:14)
[2019-06-05 07:05] LABS: LYMPHOCYTES % (MANUAL) 13 % (20-46); MONOCYTES % (MANUAL) 4 % (5-12)
[2019-06-05 07:56] LABS: ANION GAP 8.9 (8-16); CARBON DIOXIDE 32.8 mmol/L (21-32); CREATININE 0.9 mg/dL (0.7-1.3); POTASSIUM 3.7 mmol/L (3.5-5.1)
[2019-06-05] MEDS: PROPOFOL 1000 MG/100 ML PREMIX 100 ML IV PRN ×3 (07:59→18:49)
[2019-06-05] MEDS: CARVEDILOL 6.25 MG TAB PO SCH ×2 (08:16→21:00)
[2019-06-05] MEDS: POTASSIUM CHLORIDE 20% 40 MEQ/15 ML UDC GT SCH (08:17)
[2019-06-05] MEDS: PANTOPRAZOLE 40 MG INJ VIAL IVP SCH (08:17)
[2019-06-05] MEDS: LACTULOSE 20 GM/30 ML UDC PO SCH (08:17)
[2019-06-05] MEDS: NICOTINE TRANSD SYS 21 MG/24 HR PATCH TD SCH (08:17)
[2019-06-05] MEDS: Z-GUARD PASTE TP SCH (08:17)
[2019-06-05] MEDS: NACL 0.45% 1,000 ML IV SCH (08:18)
[2019-06-05] MEDS: LORazepam 2 MG/ML VIAL IVP PRN ×2 (08:18→18:10)
[2019-06-05] MEDS: MORPHINE SULFATE 2 MG/ML SYR IVP PRN ×2 (11:12→12:58)
[2019-06-05 11:43] LABS: BASOPHILS # (AUTO) 0.1 K/uL (0.00-0.22); BASOPHILS % (AUTO) 0.4 % (0.0-2.0); HEMOGLOBIN 9.5 g/dL (12.0-18.0); LYMPHOCYTES # (AUTO) 1.7 K/uL (2.0-11.5); LYMPHOCYTES % (AUTO) 13.3 % (20.5-51.1); MEAN CORPUSCULAR HEMOGLOBIN 30 pg (27-31); MEAN CORPUSCULAR HGB CONC 34 g/dL (33-37); MEAN CORPUSCULAR VOLUME 88.9 fL (80-94); MONOCYTES # (AUTO) 0.5 K/uL (0.8-1.0); MONOCYTES % (AUTO) 3.6 % (1.7-9.3); NEUTROPHILS # (AUTO) 10.5 K/uL (1.8-7.7); NEUTROPHILS % (AUTO) 82.7 % (42.2-75.2); PLATELET COUNT (AUTO) 79 K/uL (140-450); RED BLOOD CELL COUNT(AUTO) 3.15 MIL/uL (4.20-6.10); RED CELL DISTRIBUTION WIDTH 15.2 % (11.6-13.7); WHITE BLOOD COUNT (AUTO) 12.7 K/uL (4.8-10.8)
[2019-06-05 12:17] LABS: CARBON DIOXIDE 30.8 mmol/L (21-32); POTASSIUM 3.8 mmol/L (3.5-5.1)
[2019-06-05 12:18] LABS: CREATININE 0.9 mg/dL (0.7-1.3)
[2019-06-05] MEDS ORDERED: MORPHINE SULFATE 4 MG/ML SYR IVP SCH (14:00)
[2019-06-05] MEDS ORDERED: FUROSEMIDE 40 MG/4 ML VIAL IVP SCH (14:16)
[2019-06-05] MEDS ORDERED: FUROSEMIDE 20 MG/2 ML VIAL IVP SCH (14:30)
[2019-06-05 14:41] LABS: PROTHROMBIN TIME 10.7 secs (10.8-13.4)
[2019-06-06] VITALS (103 sets, daily range): BP systolic 75–126; BP diastolic 28–96
[2019-06-06] MEDS: ALBUTEROL SULFATE/IPRATROPIU 3 ML SOL IH SCH ×4 (01:30→21:42)
[2019-06-06] MEDS: LORazepam 2 MG/ML VIAL IVP PRN ×2 (03:03→14:40)
[2019-06-06] MEDS: PIPERACILLIN/TAZOBACTAM 3.375 GM in DEXTROSE 5% 50 ML IV SCH ×3 (05:37→17:51)
[2019-06-06] MEDS: methylPREDNISolone SS 40 MG/ML VIAL IVP SCH ×4 (05:38→23:55)
[2019-06-06 05:39] LABS: HEMATOCRIT 30.4 % (36-52); HEMOGLOBIN 10.2 g/dL (12.0-18.0); MEAN CORPUSCULAR HEMOGLOBIN 30 pg (27-31); MEAN CORPUSCULAR HGB CONC 34 g/dL (33-37); MEAN CORPUSCULAR VOLUME 89.7 fL (80-94); PLATELET COUNT (AUTO) 86 K/uL (140-450); RED BLOOD CELL COUNT(AUTO) 3.39 MIL/uL (4.20-6.10); RED CELL DISTRIBUTION WIDTH 15.7 % (11.6-13.7); WHITE BLOOD COUNT (AUTO) 16.1 K/uL (4.8-10.8)
[2019-06-06 06:09] LABS: LD1 FRACTION 23 % (17-32); LD2 FRACTION 33 % (25-40); LD3 FRACTION 22 % (17-27); LD4 FRACTION 13 % (5-13); LD5 FRACTION 9 % (4-20)
[2019-06-06 06:19] LABS: PROTHROMBIN TIME 10.8 secs (10.8-13.4)
[2019-06-06 06:33] LABS: ANION GAP 11.9 (8-16); CARBON DIOXIDE 31.2 mmol/L (21-32); CREATININE 0.9 mg/dL (0.7-1.3); POTASSIUM 3.1 mmol/L (3.5-5.1)
[2019-06-06] MEDS: PROPOFOL 1000 MG/100 ML PREMIX 100 ML IV PRN ×4 (07:06→23:20)
[2019-06-06 07:13] LABS: ALBUMIN 2.1 g/dL (3.4-5.0); ANION GAP 18.9 (8-16); CARBON DIOXIDE 29.2 mmol/L (21-32); MAGNESIUM 2.4 mg/dL (1.8-2.4); POTASSIUM 3.1 mmol/L (3.5-5.1); TOTAL BILIRUBIN 0.7 mg/dL (0.0-1.0)
[2019-06-06] MEDS: LANSOPRAZOLE 30 MG CAPDR PO SCH (07:34)
[2019-06-06 08:15] LABS: LYMPHOCYTES % (MANUAL) 12 % (20-46); MONOCYTES % (MANUAL) 8 % (5-12)
[2019-06-06] MEDS: NICOTINE TRANSD SYS 21 MG/24 HR PATCH TD SCH (08:24)
[2019-06-06] MEDS: POTASSIUM CHLORIDE 20% 40 MEQ/15 ML UDC GT SCH (08:24)
[2019-06-06] MEDS: BUDESONIDE 0.5 MG/2 ML NEBU INH SCH ×2 (08:47→21:43)
[2019-06-06] MEDS ORDERED: FUROSEMIDE 20 MG/2 ML VIAL IVP SCH (09:00)
[2019-06-06] MEDS: CARVEDILOL 6.25 MG TAB PO SCH ×2 (09:00→20:36)
[2019-06-06] MEDS: Z-GUARD PASTE TP SCH (09:37)
[2019-06-06] MEDS: MORPHINE SULFATE 2 MG/ML SYR IVP PRN ×2 (10:59→17:30)
[2019-06-06] MEDS: DEXT 5% / NACL 0.45% 1,000 ML IV SCH ×2 (11:02→23:40)
[2019-06-06] MEDS ORDERED: AMIODARONE 150 MG in DEXTROSE 5% 100 ML IV SCH (13:30)
[2019-06-06] MEDS: AMIODARONE 450 MG in DEXTROSE 5% 250 ML IV SCH ×3 (13:45→23:18)
[2019-06-06] MEDS ORDERED: KCL 20 MEQ/WATER INJ PREMIX 100 ML IV SCH (14:07)
[2019-06-06 14:52] LABS: MEAN CORPUSCULAR HGB CONC 34 g/dL (33-37)
[2019-06-06 14:55] LABS: HEMOGLOBIN 9.8 g/dL (12.0-18.0); MEAN CORPUSCULAR HEMOGLOBIN 31 pg (27-31); MEAN CORPUSCULAR VOLUME 89.7 fL (80-94); PLATELET COUNT (AUTO) 79 K/uL (140-450); RED BLOOD CELL COUNT(AUTO) 3.23 MIL/uL (4.20-6.10); RED CELL DISTRIBUTION WIDTH 15.1 % (11.6-13.7); WHITE BLOOD COUNT (AUTO) 16.9 K/uL (4.8-10.8)
[2019-06-06] MEDS ORDERED: POTASSIUM CHLORIDE 40 MEQ, LIDOCAINE MPF 1% - 5 mL VIAL 25 MG in NACL 0.9% 250 ML IV SCH (15:00)
[2019-06-06 15:18] LABS: LYMPHOCYTES % (MANUAL) 14 % (20-46); MONOCYTES % (MANUAL) 6 % (5-12)
[2019-06-06 16:19] LABS: ANION GAP 14.1 (8-16); CARBON DIOXIDE 30.7 mmol/L (21-32); CREATININE 1.1 mg/dL (0.7-1.3); POTASSIUM 2.8 mmol/L (3.5-5.1)
[2019-06-06] MEDS ORDERED: POTASSIUM CHLORIDE 40 MEQ, LIDOCAINE MPF 1% - 5 mL VIAL 25 MG in NACL 0.9% 250 ML IV ONE (18:15)
[2019-06-06] MEDS: fentaNYL 1 MG in NACL 0.9% 80 ML IV PRN (18:54)
[2019-06-06] MEDS ORDERED: KCL 20 MEQ/WATER INJ PREMIX 200 ML IV SCH (19:00)
[2019-06-06] MEDS ORDERED: POTASSIUM CHLORIDE 20% 40 MEQ/15 ML UDC GT SCH (20:00)
[2019-06-06] MEDS: RIFAXIMIN 550 MG TAB PO SCH (20:34)
[2019-06-06] MEDS ORDERED: AZITHROMYCIN 250 MG in DEXTROSE 5% 250 ML IV SCH (23:00)
[2019-06-06] MEDS ORDERED: PIPERACILLIN/TAZOBACTAM 3.375 GM VIAL IV ONE (23:11)
[2019-06-06] MEDS ORDERED: AZITHROMYCIN 500 MG INJ VIAL IV ONE (23:16)
[2019-06-06] MEDS: PIPER/TAZO 3.375GM/D5W PREMIX 50 ML IV SCH (23:42)
[2019-06-06] MEDS: MIDAZOLAM MDV 50 MG in NACL 0.9% 40 ML IV PRN (23:59)
[2019-06-07] VITALS (101 sets, daily range): BP systolic 84–170; BP diastolic 25–103
[2019-06-07] LABS: ANION GAP 13.3 (8-16); CARBON DIOXIDE 26.8 mmol/L (21-32); POTASSIUM 4.1 mmol/L (3.5-5.1)
[2019-06-07] MEDS: ALBUTEROL SULFATE/IPRATROPIU 3 ML SOL IH SCH ×4 (00:59→19:59)
[2019-06-07] MEDS: KCL 20 MEQ/WATER INJ PREMIX 200 ML IV SCH ×2 (01:00→01:11)
[2019-06-07] MEDS: LORazepam 2 MG/ML VIAL IVP PRN ×2 (03:41→11:48)
[2019-06-07 05:21] LABS: HEMATOCRIT 27.6 % (36-52); HEMOGLOBIN 9.2 g/dL (12.0-18.0); MEAN CORPUSCULAR HEMOGLOBIN 30 pg (27-31); MEAN CORPUSCULAR HGB CONC 33 g/dL (33-37); MEAN CORPUSCULAR VOLUME 89.5 fL (80-94); PLATELET COUNT (AUTO) 73 K/uL (140-450); RED BLOOD CELL COUNT(AUTO) 3.09 MIL/uL (4.20-6.10); RED CELL DISTRIBUTION WIDTH 15.7 % (11.6-13.7); WHITE BLOOD COUNT (AUTO) 17.6 K/uL (4.8-10.8)
[2019-06-07 05:26] LABS: ANION GAP 11.6 (8-16); CARBON DIOXIDE 30.5 mmol/L (21-32); MAGNESIUM 2.3 mg/dL (1.8-2.4); PHOSPHORUS 2.4 mg/dL (2.5-4.9); POTASSIUM 4.1 mmol/L (3.5-5.1); TOTAL BILIRUBIN 0.6 mg/dL (0.0-1.0)
[2019-06-07] MEDS: PIPER/TAZO 3.375GM/D5W PREMIX 50 ML IV SCH (05:42)
[2019-06-07 05:49] LABS: LYMPHOCYTES % (MANUAL) 16 % (20-46); MONOCYTES % (MANUAL) 3 % (5-12)
[2019-06-07] MEDS: LANSOPRAZOLE 30 MG CAPDR PO SCH (05:52)
[2019-06-07] MEDS: methylPREDNISolone SS 40 MG/ML VIAL IVP SCH ×2 (05:52→12:35)
[2019-06-07 06:43] LABS: PROTHROMBIN TIME 11.2 secs (10.8-13.4)
[2019-06-07] MEDS ORDERED: ALBUMIN HUMAN 25% 100 ML IV SCH (07:22)
[2019-06-07] MEDS: MIDAZOLAM MDV 50 MG in NACL 0.9% 40 ML IV PRN ×2 (07:59→21:16)
[2019-06-07] MEDS: BUDESONIDE 0.5 MG/2 ML NEBU INH SCH ×2 (08:00→20:04)
[2019-06-07] MEDS: fentaNYL 1 MG in NACL 0.9% 80 ML IV PRN ×2 (08:01→21:11)
[2019-06-07] MEDS: NICOTINE TRANSD SYS 21 MG/24 HR PATCH TD SCH (08:54)
[2019-06-07] MEDS: RIFAXIMIN 550 MG TAB PO SCH ×2 (08:54→21:20)
[2019-06-07] MEDS: POTASSIUM CHLORIDE 20% 40 MEQ/15 ML UDC GT SCH (08:55)
[2019-06-07] MEDS: CARVEDILOL 6.25 MG TAB PO SCH ×2 (08:55→21:19)
[2019-06-07] MEDS: Z-GUARD PASTE TP SCH (08:56)
[2019-06-07] MEDS: MORPHINE SULFATE 2 MG/ML SYR IVP PRN ×2 (11:09→15:30)
[2019-06-07] MEDS ORDERED: AMIODARONE 200 MG TAB PO SCH (11:28)
[2019-06-07] MEDS: PIPERACILLIN/TAZOBACTAM 3.375 GM in DEXTROSE 5% 50 ML IV SCH ×2 (12:36→18:03)
[2019-06-07] MEDS ORDERED: LACTULOSE 20 GM/30 ML UDC NG SCH (12:36)
[2019-06-07] MEDS: AMIODARONE 200 MG TAB PO SCH (21:19)
[2019-06-07] MEDS: DEXT 5% / NACL 0.45% 1,000 ML IV SCH (23:25)
[2019-06-08] VITALS (64 sets, daily range): BP systolic 92–151; BP diastolic 52–98
[2019-06-08] MEDS: PIPERACILLIN/TAZOBACTAM 3.375 GM in DEXTROSE 5% 50 ML IV SCH ×2 (00:51→06:16)
[2019-06-08] MEDS: ALBUTEROL SULFATE/IPRATROPIU 3 ML SOL IH SCH ×2 (01:25→06:50)
[2019-06-08] MEDS: LORazepam 2 MG/ML VIAL IVP PRN ×2 (01:37→07:34)
[2019-06-08] MEDS: MORPHINE SULFATE 2 MG/ML SYR IVP PRN (03:35)
[2019-06-08 05:30] LABS: LACTATE DEHYDROGENASE 994 IU/L (0-214)
[2019-06-08] MEDS: LANSOPRAZOLE 30 MG CAPDR PO SCH (06:16)
[2019-06-08] MEDS: BUDESONIDE 0.5 MG/2 ML NEBU INH SCH (06:50)
[2019-06-08] MEDS: fentaNYL 1 MG in NACL 0.9% 80 ML IV PRN (08:09)
[2019-06-08] MEDS: AMIODARONE 200 MG TAB PO SCH (08:18)
[2019-06-08] MEDS: NICOTINE TRANSD SYS 21 MG/24 HR PATCH TD SCH (08:18)
[2019-06-08] MEDS: CARVEDILOL 6.25 MG TAB PO SCH (08:18)
[2019-06-08] MEDS: RIFAXIMIN 550 MG TAB PO SCH (08:18)
[2019-06-08] MEDS: POTASSIUM CHLORIDE 20% 40 MEQ/15 ML UDC GT SCH (08:18)
[2019-06-08] MEDS: Z-GUARD PASTE TP SCH (08:19)
[2019-06-08] MEDS ORDERED: LACTULOSE 20 GM/30 ML UDC NG SCH (09:00)
[2019-06-08] MEDS ORDERED: methylPREDNISolone SS 40 MG/ML VIAL IVP SCH (09:00)
[2019-06-08 09:37] LABS: BASOPHILS % (AUTO) 0.2 % (0.0-2.0); HEMATOCRIT 25.4 % (36-52); HEMOGLOBIN 8.5 g/dL (12.0-18.0); LYMPHOCYTES # (AUTO) 1.7 K/uL (2.0-11.5); LYMPHOCYTES % (AUTO) 10.5 % (20.5-51.1); MEAN CORPUSCULAR HEMOGLOBIN 30 pg (27-31); MEAN CORPUSCULAR HGB CONC 34 g/dL (33-37); MEAN CORPUSCULAR VOLUME 89.8 fL (80-94); MONOCYTES # (AUTO) 0.5 K/uL (0.8-1.0); NEUTROPHILS # (AUTO) 13.8 K/uL (1.8-7.7); NEUTROPHILS % (AUTO) 86.3 % (42.2-75.2); PLATELET COUNT (AUTO) 90 K/uL (140-450); RED BLOOD CELL COUNT(AUTO) 2.83 MIL/uL (4.20-6.10); RED CELL DISTRIBUTION WIDTH 15.7 % (11.6-13.7)
[2019-06-08 09:51] LABS: PROTHROMBIN TIME 11.5 secs (10.8-13.4)
[2019-06-08 09:53] LABS: ALBUMIN 1.9 g/dL (3.4-5.0); CARBON DIOXIDE 29.5 mmol/L (21-32); CREATININE 1.1 mg/dL (0.7-1.3); MAGNESIUM 2.4 mg/dL (1.8-2.4); PHOSPHORUS 3.6 mg/dL (2.5-4.9); POTASSIUM 3.5 mmol/L (3.5-5.1); TOTAL BILIRUBIN 0.7 mg/dL (0.0-1.0)
[2019-06-08] MEDS ORDERED: POTASSIUM CHLORIDE 20% 40 MEQ/15 ML UDC GT ONE (11:20)
[2019-06-08] MEDS ORDERED: ONDANSETRON 4 MG/2 ML VIAL IVP PRN (11:30)
[2019-06-08] MEDS ORDERED: LORazepam 2 MG/ML VIAL IVP PRN (11:30)
[2019-06-08] MEDS ORDERED: SCOPOLAMINE 1.5 MG/72 HR PATCH TD SCH (11:49)
[2019-06-08] MEDS: MORPHINE SULFATE 100 MG in NACL 0.9% 90 ML IV PRN ×2 (12:58→15:29)
[2019-06-08] MEDS ORDERED: MORPHINE SULFATE 100 MG in NACL 0.9% 90 ML IV PRN ×2 (15:40→16:30)
[2019-06-11] MEDS ORDERED: SCOPOLAMINE 1.5 MG/72 HR PATCH TD SCH (09:00)
== END 2019-06-08 16:05 | disposition expired | DRG 870 ==
LOC: MED 16:42 → MMU 18:42 → MTU 19:24 → MIC 05-30 08:39 → MTU 06-08 14:25
PROVIDERS: ADMIT General Practice; ATTEND General Practice
PROC: 5A09457 Assistance with Respiratory Ventilation, 24-96 Consecutive Hours, Continuous Positive Airway Pressure (ICD-10-PCS; 2019-05-30)
PROC: 0W9B3ZZ Drainage of Left Pleural Cavity, Percutaneous Approach (ICD-10-PCS; 2019-05-31)
PROC: 5A09357 Assistance with Respiratory Ventilation, Less than 24 Consecutive Hours, Continuous Positive Airway Pressure (ICD-10-PCS; 2019-05-31)
PROC: 5A1955Z Respiratory Ventilation, Greater than 96 Consecutive Hours (ICD-10-PCS; principal; 2019-06-01)
PROC: 02HV33Z Insertion of Infusion Device into Superior Vena Cava, Percutaneous Approach (ICD-10-PCS; 2019-06-01)
PROC: B548ZZA Ultrasonography of Superior Vena Cava, Guidance (ICD-10-PCS; 2019-06-01)
PROC: 0BH17EZ Insertion of Endotracheal Airway into Trachea, Via Natural or Artificial Opening (ICD-10-PCS; 2019-06-01)
PROC: 0B9G8ZX Drainage of Left Upper Lung Lobe, Via Natural or Artificial Opening Endoscopic, Diagnostic (ICD-10-PCS; 2019-06-05)
PROC: 0B9B8ZZ Drainage of Left Lower Lobe Bronchus, Via Natural or Artificial Opening Endoscopic (ICD-10-PCS; 2019-06-05)
DX: A41.9 Sepsis, unspecified organism (principal); J18.9 Pneumonia, unspecified organism; R65.21 Severe sepsis with septic shock; J96.21 Acute and chronic respiratory failure with hypoxia; I50.43 Acute on chronic combined systolic (congestive) and diastolic (congestive) heart failure; I21.4 Non-ST elevation (NSTEMI) myocardial infarction; J44.1 Chronic obstructive pulmonary disease with (acute) exacerbation; C34.90 Malignant neoplasm of unspecified part of unspecified bronchus or lung; J44.0 Chronic obstructive pulmonary disease with (acute) lower respiratory infection; K92.2 Gastrointestinal hemorrhage, unspecified; E87.0 Hyperosmolality and hypernatremia; E87.6 Hypokalemia; D69.59 Other secondary thrombocytopenia; E78.5 Hyperlipidemia, unspecified; F10.10 Alcohol abuse, uncomplicated; F17.210 Nicotine dependence, cigarettes, uncomplicated; I11.0 Hypertensive heart disease with heart failure; I25.10 Atherosclerotic heart disease of native coronary artery without angina pectoris; I73.9 Peripheral vascular disease, unspecified; Z51.5 Encounter for palliative care; Z66 Do not resuscitate; E78.00 Pure hypercholesterolemia, unspecified; K72.90 Hepatic failure, unspecified without coma; M47.817 Spondylosis without myelopathy or radiculopathy, lumbosacral region; I48.0 Paroxysmal atrial fibrillation; I25.2 Old myocardial infarction; Z91.19 Patient's noncompliance with other medical treatment and regimen
CPT/HCPCS: 31500; 36415; 36600; 70450; 71045; 71250; 76604; 76700; 76942; 80048; 80053; 80305; 81001; 82040; 82140; 82150; 82272; 82465; 82550; 82553; 82803; 82945; 83036; 83605; 83615; 83625; 83690; 83735; 83880; 84100; 84132; 84133; 84157; 84436; 84443; 84484; 85025; 85610; 85730; 86704; 86706; 86708; 86709; 86803; 86886; 86900; 86901; 87040; 87070; 87075; 87081; 87086; 87102; 87205; 87340; 88305; 88313; 88342; 89051; 89220; 93005; 93925; 93970; 94003; 94640; 94660; 96374; 99285; C1758; C9113; G0482; J0282; J0456; J1642; J1644; J1940; J2001; J2060; J2250; J2270; J2405; J2543; J2704; J2920; J2930; J3010; J3475; J3480; J3490; J7030; J7042; J7060; J7620; J7626; P9035; Q0092